=== PATIENT | male | born 1985 | race Caucasian/White ===

== ENCOUNTER 2019-12-30 15:08 | Emergency (ER) | payer BC ==
[~2019-12-30] VITALS: Ht 167.6 cm; Wt 88.5 kg
[2019-12-30] MEDS ORDERED: HYDROCODONE/APAP 7.5MG-325MG 1 EA TAB PO STA (15:36)
--- NOTE | 2019-12-30 16:50 | Diagnostic Imaging Report ---
Exam: Left foot series, 3 views. Clinical History: Injured foot playing basketball Comparison: None. Findings: 3 views of the left foot. There is normal bone mineralization. Acute, minimally displaced fracture of the proximal metaphysis of the fifth metatarsal bone (Mcdaniels fracture). Questionable intra-articular extension. Other bony structures are intact. Joint spaces are preserved. Soft tissue swelling in the lateral aspect of the foot Impression: 1. Acute, minimally displaced fracture of the proximal metaphysis of the fifth metatarsal bone with questionable intra-articular extension. Associated soft tissue swelling. Signed by: Dr. Alfie Salgado M.D. on 12/30/2019 4:47 PM
--- NOTE | 2019-12-30 16:51 | Diagnostic Imaging Report ---
Exam: Left Ankle Series. History: Injured foot playing basketball Comparison: None. DISCUSSION: 3 views of the left ankle. There is normal bone mineralization. No evidence of acute, displaced fracture or dislocation. Ankle mortise is preserved.No osteochondral lesion. No abnormal soft tissue calcification or mass. No soft tissue swelling. IMPRESSION: 1. Unremarkable left ankle series. The staff physician below has personally reviewed this exam on the date of dictation. Signed by: Dr. Alfie Salgado M.D. on 12/30/2019 4:47 PM
== END 2019-12-30 17:00 | disposition home or self-care (01) ==
LOC: ER 15:08
DX: S92.015A Nondisplaced fracture of body of left calcaneus, initial encounter for closed fracture (principal); X50.1XXA Overexertion from prolonged static or awkward postures, initial encounter; Y92.008 Other place in unspecified non-institutional (private) residence as the place of occurrence of the external cause
CPT/HCPCS: 99283